=== PATIENT | female | born 2000 | race African-American/Black ===

== ENCOUNTER 2022-01-12 10:38 | Emergency (ER) | payer OTHER ==
[2022-01-12 10:54] VITALS: BP 109/73; PULSE 99; TEMP 99.2; BMI 22.6
[2022-01-12] MEDS ORDERED: KETOROLAC TROMETHAMINE 30 MG/1 ML VIAL IVPUSH ONE (12:10)
[2022-01-12] MEDS ORDERED: KETOROLAC TROMETHAMINE 30 MG/1 ML VIAL ONE (12:34)
[2022-01-12 13:28] LABS: BASO % 0.3 % (0-2.0); EOS % 0.5 % (0-4.5); HEMATOCRIT 42.5 % (32.4-45.2); LYMPH % 21.3 % (8-40); MCH 27.3 pg (25.7-33.7); MEAN CELL VOLUME 82.8 fl (80-96); MEAN PLT VOLUME 7.8 fl (7.5-11.1); MONO % 9.2 % (3.8-10.2); NEUT % 68.7 % (42.8-82.8); PLATELET COUNT 256 10^3/uL (134-434); RBC 5.14 M/mm3 (3.60-5.2); RDW 14.2 % (11.6-15.6); WHITE BLOOD COUNT 6.5 K/mm3 (4.0-10.0)
[2022-01-12 13:40] LABS: CALCIUM 8.7 mg/dL (8.5-10.1)
[2022-01-12 13:41] LABS: ALBUMIN 3.7 g/dl (3.4-5.0); BLOOD UREA NITROGEN 8.6 mg/dL (7-18)
[2022-01-12 13:44] LABS: CREATININE 0.8 mg/dL (0.55-1.3)
[2022-01-12 13:45] LABS: BILIRUBIN,TOTAL 0.5 mg/dL (0.2-1)
[2022-01-12 13:46] LABS: TOT PROT 8.3 g/dl (6.4-8.2)
== END 2022-01-12 17:27 | disposition home or self-care (01) ==
LOC: JERFT 10:38
PROC: 3E033GC Introduction of Other Therapeutic Substance into Peripheral Vein, Percutaneous Approach (ICD-10-PCS; principal; 2022-01-12)
DX: K11.20 Sialoadenitis, unspecified (principal)
CPT/HCPCS: 36415; 70491-TC; 80053; 84703; 85025; 87651; 99285-25; Q9967